=== PATIENT | male | born 1955 | race Caucasian/White ===

== ENCOUNTER 2019-03-14 06:46 | Day surgery (SDC) | payer OTHER ==
[~2019-03-14] VITALS: Ht 172.7 cm; Wt 83.9 kg
[2019-03-14] VITALS (10 sets, daily range): BP systolic 105–123; BP diastolic 72–87
--- NOTE | 2019-03-14 06:34 | Anethesia Preoperative Eval ---
Anesthesia Pre-op PMH/ROS General Date of Evaluation: Mar 14, 2019 Time of Evaluation: 06:31 Anesthesiologist: cristian ASA Score: ASA 3 Mallampati Score Class I : Soft palate, uvula, fauces, pillars visible Class II: Soft palate, uvula, fauces visible Class III: Soft palate, base of uvula visible Class IV: Only hard plate visible Mallampati Classification: Class II Surgeon: ernesto Diagnosis: gerd Surgical Procedure: egd Anesthesia History: none Social History: smoking - nonsmoker Family History: no anesthesia problems Allergies: Coded Allergies: No Known Allergies (Unverified , 03/14/19) Medications: see eMAR Patient NPO?: Yes Past Medical History Cardiovascular: Reports: HTN Gastrointestinal/Genitourinary: Reports: GERD Endocrine: Reports: hypothyroidism HEENT: Reports: other - sinus problem, nose problem, throat problem Musculoskeletal/Integumentary: Reports: OA, other - back pain PSxH Narrative: tonsillectomy, bilateral tka, shoulder sx Anesthesia Pre-op Phys. Exam Physician Exam Last Vital Signs Date Time Temp Pulse Resp B/P (MAP) Pulse Ox O2 Delivery O2 Flow Rate FiO2 03/14/19 07:26 Room Air 03/14/19 07:22 97.0 60 18 107/73 98 Constitutional: NAD Neurologic: CN 2-12 intact Cardiovascular: RRR Respiratory: CTA Gastrointestinal: S/NT/ND Airway Exam Mallampati Score: Class II MO: limited Neck: flexible TMD: 2fb ROM: limited Anesthesia Pre-op A/P Risk Assessment & Plan Assessment: asa3 Plan: mac Status Change Before Surgery: No Pre-Antibiotics Drug: Daniella Kate MD Mar 14, 2019 06:34
[~2019-03-14 06:46] MED LIST: ADVAIR 100/501 PUFF1 INH; ASPIRIN81 MG ORAL; AZELASTINE137 MCG/0. NS; Atropine Inj 1mg/10ml Syr IV PRN; BENICAR40 MG ORAL; DiphenhydrAMINE 50mg/ml Inj IVP PRN; FLONASE ALLERG9.9 ML NS; LR 1000ml 1,000 ML IVLG SCH; Midazolam 2mg/2ml Inj IVP PRN; SINGULAIR10 MG ORAL; SYNTHROID150 MCG ORAL; VITAMIN D400 INTLU ORAL; fentaNYL 100 mcg/2 mL IV PRN
[2019-03-14] MEDS ORDERED: LR 1000ml 1,000 ML IVLG SCH (07:06)
[2019-03-14] MEDS ORDERED: OMEPRAZOLE10 M1 ORAL (07:27)
--- NOTE | 2019-03-14 07:55 | Short Stay Surgery H&P ---
History of Present Illness History of Present Illness Chief Complaint Abdominal pains/GERDs HPI Zach Fortune is a 64 year old male who was admitted on for GERDS and epigastric pains Patient History Allergies: Coded Allergies: No Known Allergies (Unverified , 03/14/19) PAST MEDICAL HISTORY: (1) Hypertension (2) Hypothyroid (3) Status post knee surgery (4) Status post shoulder surgery (5) Rhinitis, allergic Medication History Scheduled Aspirin* (Aspirin*), 81 MG ORAL DAILY, (Reported) Azelastine Hcl (Azelastine Hcl), 1 PUFF NS BID, (Reported) Fluticasone Propionate (Flonase Allergy Relief), 9.9 ML NS BID, (Reported) Fluticasone/Salmeterol (Advair 100-50 Diskus), 1 PUFF INH NEEDED, (Reported) Levothyroxine Sodium* (Synthroid*), 150 MCG ORAL DAILY, (Reported) Montelukast Sodium* (Singulair*), 10 MG ORAL DAILY, (Reported) Olmesartan Medoxomil (Benicar), 40 MG ORAL DAILY, (Reported) Omeprazole (Omeprazole), Unknown Dose ORAL DAILY, (Reported) Vitamin D (Vitamin D3), 5,000 UNITS ORAL DAILY, (Reported) Review of Systems Cardiovascular: Reports: no symptoms Respiratory: Reports: other Skeletal: Reports: trauma Gastrointestinal: Reports: gastro esophageal reflux disease Genitourinary: Reports: no symptoms Neurologic: Reports: no symptoms Endocrine: Reports: thyroid Hematologic: Reports: no symptoms Physical Exam Vital Signs Last Vital Signs Date Time Temp Pulse Resp B/P (MAP) Pulse Ox O2 Delivery O2 Flow Rate FiO2 03/14/19 07:26 Room Air 03/14/19 07:22 97.0 60 18 107/73 98 Skin: normal HENT: normal Heart: normal Lungs: normal Abdomen: abnormal Extremities: normal Genitourinary: normal Plan Plan of Care Upper GI. endoscopy with biopsy Preop Interventions None. Summary of Findings See the reports Attestation Are the patient's medical conditions optimized for surgery? Attestation Response: yes Judith Garcia MD Mar 14, 2019 07:55
--- NOTE | 2019-03-14 07:55 | Pre-Procedure Note/Attestation ---
Pre-Procedure Note/Attestation Complete Prior to Procedure Planned Procedure: left Procedure Narrative: Examination of the upper GI. tract via endoscopy. Indications for Procedure Pre-Operative Diagnosis: R/O Peptic Ulcer/ Gastritis/esophagitis Attestation I attest that I discussed the nature of the procedure; its benefits; risks and complications; and alternatives (and the risks and benefits of such alternatives ), prior to the procedure, with the patient (or the patient's legal sales representative). I attest that, if there was a reasonable possibility of needing a blood transfusion, the patient (or the patient's legal sales representative) was given the [place] Department [employer] standardized written summary, pursuant to the [place] Blood Safety Act ([place] Health and Safety Code # 1645, as amended). I attest that I re-evaluated the patient just prior to the surgery and that there has been no change in the patient's H&P, except as documented below: Judith Garcia MD Mar 14, 2019 07:55
[2019-03-14] MEDS ORDERED: LR 1000ml ONE (08:00)
[2019-03-14] MEDS ORDERED: Lidocaine 1% MPF 10mg/ml 5ml ONE (08:00)
[2019-03-14] MEDS ORDERED: Propofol 200mg/20ml IV ONE (08:00)
--- NOTE | 2019-03-14 08:11 | Endoscopy Procedure Note ---
Endoscopy Procedure Note General Indication for Procedure: Abdominal/epigastric pains Procedures Performed: EGD - Completely normal upper GI. Endoscopy. Biopsy was obtained per random from gastric body. Specimen: yes Pt Tolerated Procedure Well: Yes Estimated Blood Loss: none Anesthesia Anesthesiologist: Dr. Ngo Anesthesia: moderate sedation Medications Medication Given: see anesthesia record Inserted Devices Implant(s) used?: No Quality Quality of Bowel Preparation: Excellent Was there any complications?: No GI Core Measures 50 yrs or older w/o bx or poly: Not Applicable 10yrs. F/U recommended: Not Applicable If not recommended, why?: Med reason:<3 yrs.: System Reason:<3 yrs.: Judith Garcia MD Mar 14, 2019 08:11
--- NOTE | 2019-03-14 08:12 | Discharge Instructions ---
Discharge Instructions Discharge Instructions Follow up with: Make appointment to see the doctor after 2 weeks For Congestive Heart Failure Reminder Report to your physician any weight gain of 5 pounds or more in one week. Judith Garcia MD Mar 14, 2019 08:12
--- NOTE | 2019-03-14 08:37 | Immediate Post-Op Evaluation ---
Immediate Post-Op Evalulation Immediate Post-Op Evalulation Procedure: egd w/bx Date of Evaluation: Mar 14, 2019 Time of Evaluation: 08:30 IV Fluids: 200ml lr Blood Products: none Estimated Blood Loss: negligible Blood Pressure Systolic: 112 Blood Pressure Diastolic: 73 Pulse Rate: 69 Respiratory Rate: 18 O2 Sat by Pulse Oximetry: 100 Temperature (Fahrenheit): 98.0 Pain Score (1-10): 0 Nausea: No Vomiting: No Complications none Patient Status: awake, reacts, patent Hydration Status: adequate Drug: Daniella Kate MD Mar 14, 2019 08:37
--- NOTE | 2019-03-14 08:39 | 48 Hour Post Anesthesia Eval ---
Post Anesthesia Evaluation Procedure: egd w/bx Date of Evaluation: Mar 14, 2019 Time of Evaluation: 08:32 Blood Pressure Systolic: 111 0: 74 Pulse Rate: 71 Respiratory Rate: 18 Temperature (Fahrenheit): 98.0 O2 Sat by Pulse Oximetry: 100 Airway: patent Nausea: No Vomiting: No Pain Intensity: 0 Hydration Status: adequate Cardiopulmonary Status: stable Mental Status/LOC: patient returned to baseline Post-Anesthesia Complications: none Follow-up care needed: N/A Daniella Ngo MD Mar 14, 2019 08:39
--- NOTE | 2019-03-14 10:15 | Operative Note - Dictated ---
DATE OF OPERATION: 03/14/2019 SURGEON: Judith Garcia M.D. PROCEDURE: Esophagogastroduodenoscopy with biopsy. PREOPERATIVE DIAGNOSES: History of chronic gastroesophageal reflux disease and possible laryngitis. POSTOPERATIVE DIAGNOSIS: Completely normal upper GI endoscopy. Biopsy was taken per random from gastric body. MEDICATION USED: Per Dr. Fritz, anesthesiologist. INSTRUMENT: GIF Olympus upper GI video endoscope. DESCRIPTION OF PROCEDURE: The patient after arriving in the endoscopy unit, was told about risks and benefits of the procedure, which he accepted and signed informed consent. At this time, he was put on the left lateral decubitus position and after adequate IV sedation, the scope was gently passed through the cricopharyngeal area, was lodged into the upper esophagus, and gradually advanced towards gastroesophageal junction. The entire length of the esophagus looked normal. No evidence of any inflammatory process, ulceration, strictures, polyps, tumors, etc. was found. The GE junction was also looking good without any evidence of hiatal hernia or Cheung's mucosa. At this time, the scope was advanced into the stomach and gastric cavity was distended. Gradually, the areas of the fundus and the body and the antrum were examined carefully and there was no any mucosal abnormality. No evidence of ulcers, polyps, tumors, bleeding site etc. noted. A retroflexion maneuver was also applied and the GE junction was examined in a closer fashion, which again revealed completely normal. Finally, one random biopsy from gastric body obtained and subsequently scope was passed through normal looking antrum to the pylorus. First and second portion of duodenum were also examined, which looked completely normal. At this time, the scope was pulled out and procedure was terminated. The patient tolerated the procedure well and left the endoscopy room in a good condition. Judith Garcia M.D. DR: KEREN JOB#: [id number] CC:
--- NOTE | 2019-03-14 10:15 | Pre-op HX & Phy Repo 2 SIG ---
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 The patient was followed in the office by me approximately a few months ago whereby he was complaining of feeling pressure over his throat area as he had also been examined by Ear Nose doctor (ENT physician), Dr. Jarrell Valverde. He had a history of multiple conditions of ear and nose problems including laryngeal changes, which was consistent with possible gastroesophageal reflux as well, but he did have symptoms of rhinitis and allergic reactions as well. This condition affected his breathing at times for which he was taking some medications as well. At this point, when I examined the patient, he was reporting that he had some kind of pressure over his upper part of the abdomen including history of gastroesophageal reflux consistent with heartburn. He denied having any history of GI bleeding such as hematemesis, melena, hematochezia, etc. He reported that he was taking TUMS for his heartburn, which was helpful. 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 He was subsequently started on nonsteroidal anti-inflammatory agents, NSAIDs that he took occasionally periodically. At this point, the applicant denies having any history of constipation or diarrhea, change in bowel movements, nausea, vomiting, etc. He reports that occasionally, he sees some fluid over his chest area at night. He denies having had any history of major gastrointestinal conditions being diagnosed in the past. PAST MEDICAL HISTORY: As I mentioned, ear, nose, throat condition which was consistent with nasal airway obstruction and also he had bilateral hearing nerve loss and tinnitus as well. He also reported that he had history of hypertension and hypothyroidism. PAST SURGICAL HISTORY: He has had surgeries over his both knees and both shoulders related to work accident. ALLERGIES: Nonsignificant. CHILDHOOD DISEASES: As usual. HABITS: The applicant only occasionally socially drinks beer occasionally and does not smoke cigarettes and does not use illicit drugs. MEDICATIONS: Benicar 40 mg, aspirin 81 mg, Synthroid 100 mcg daily. REVIEW OF SYSTEMS: Basically history of present illness. The applicant also reported to me that he has had history of colonoscopic examination in the past, which were reported to be normal. PHYSICAL EXAMINATION: GENERAL: At this time reveals alert, oriented, very pleasant gentleman, does not seem to be in any acute distress. VITAL SIGNS: Temperature 97.0, pulse rate 60 per minute, respiratory rate 18, blood pressure 107/73, oxygen saturation on room air is 98%. HEENT: Normocephalic. Pupils equal in size and reactive to light and accommodation. No visible jaundice. Buccal cavity, tongue midline, well hydrated. No ulcers. NECK: Supple. No JVD, thyromegaly, or adenopathy noted. CHEST: Clear to auscultation and percussion. No rales or rhonchi. HEART: S1, S2 normal. Regular rhythm. No gallops or murmur. ABDOMEN: Soft and currently nontender. There is no hepatosplenomegaly. No palpable mass. NEUROLOGIC: Nonsignificant. PRELIMINARY PREOPERATIVE IMPRESSION: 1. History of gastroesophageal reflux of uncertain etiology, rule out NSAID-induced gastropathy, peptic ulcer disease, gastroesophageal acid reflux being aggravated by environmental factors such as food, etc, rule out Cheung's mucosa. 2. History of possible laryngitis, rhinitis. 3. Tinnitus. 4. History of bodily injury at work. At this point, the applicant seems to be completely stable to undergo the procedure for upper GI endoscopy for which he has been scheduled. He understands the risks and benefits and will sign the consent. Said Brooke Garcia. DR: KEREN JOB#: [id number] CC:
== END 2019-03-14 09:30 | disposition home or self-care (01) ==
LOC: GAS 06:46
DX: K21.9 Gastro-esophageal reflux disease without esophagitis (principal); E03.9 Hypothyroidism, unspecified; I10 Essential (primary) hypertension; Z79.82 Long term (current) use of aspirin; Z79.899 Other long term (current) drug therapy; H93.19 Tinnitus, unspecified ear; M19.90 Unspecified osteoarthritis, unspecified site; Z96.653 Presence of artificial knee joint, bilateral; K29.50 Unspecified chronic gastritis without bleeding
CPT/HCPCS: 43239; J2704; 94003; 94150